=== PATIENT | male | born 1975 | race African-American/Black ===

== ENCOUNTER 2023-11-01 04:45 | Emergency (ER) | payer OTHER, SELFPAY ==
--- NOTE | ~2023-11-01 | US_ITS ---
US abdomen limited INDICATION: Pancreatitis. Gallbladder sludge. PROCEDURE: Realtime right upper abdominal ultrasound. COMPARISON: CT dated 11/01/2023 FINDINGS: Pancreas is not well visualized. Please refer to CT report. Liver echotexture is increased , consistent with fatty infiltration. There is normal directional flow in the portal vein. There is gallbladder sludge. No definitive stones. Common bile duct measures 4 mm. No sonographic M urphy's sign. IMPRESSION: 1: Gallbladder sludge. 2: Fatty infiltration of the liver. Reviewed, dictated and finalized at location A. RER GOLD LEAF
--- NOTE | ~2023-11-01 | CT_ITS ---
EXAMINATION: CT abdomen pelvis w con DATE: 11/01/2023 06:59 INDICATION: Generalized abdominal pain for 3 weeks. Pancreatitis. TECHNIQUE: Computed tomography (CT) of the abdomen and pelvis was performed with 100 cc Omnipaque 350 intravenous contrast. The dose-length product was 1728.57 mGy-cm. Automated exposure control and ite rative reconstruction technique were employed. COMPARISON: None. FINDINGS: There is patchy airspace consolidation in the lower lobes, consistent with pneumonia. Small left pleural effusion. There is no evidence for acute pancreatitis. There is a cystic mass centered in the left upper abdomen measuring up to 13.5 cm, suspicious for pancreatic pseudocyst. There is mas s effect on the adjacent stomach. Small pericardial effusion. The liver, spleen, adrenal glands and kidneys are unremarkable. Gallbladd er is present. Nonobstructive bowel pattern. No abnormal pelvic masses or fluid collections. Mild lum bar spondylosis. There is hyperdense material in the gallbladder which may represent sludge or stones . Consider correlation with ultrasound. IMPRESSION: 1. Acute pancreatitis with probable associated large pancreatic pseudocyst measuring up to 13.5 cm in the left upper abdomen. 2: Hyperdense material in the gallbladder lumen which may represent sludge or stones. Consider correl ation with ultrasound. Reviewed, dictated and finalized at location A. ERS COMPENSATION MANAGER IMPRESSION: 1. Acute pancreatitis with probable associated large pancreatic pseudocyst mick uring up to 13.5 cm in the left upper abdomen. 2: Hyperdense material in the gallbladder lumen which may represent sludge or s tones. Consider correlation with ultrasound.
[2023-11-01 04:45] VITALS: BP 167/108; PULSE 115; RESP 18; TEMP 36.6; O2SAT 95
--- NOTE | 2023-11-01 05:08 | ECG_ITS ---
Measurements Intervals [place] Rate: 104 P: 32 MI: 128 QRS: 44 QRSD: 105 T: 43 QT: 346 QTc: 456 Interpretive Statements SINUS TACHYCARDIA LEFT ATRIAL ENLARGEMENT [-0.15mV P WAVE IN V1/V2] BORDERLINE ECG NO PREVIOUS ECG AVAILABLE FOR COMPARISON Electronically Signed On 11-01-2023 18:23:52 SOCIAL WORK THERAPIST by Ramon Campbell M.D.
[2023-11-01] MEDS: SODIUM CHLORIDE 0.9% IV 2,000 ML 999 ML IV CONT (05:28)
[2023-11-01] MEDS: ONDANSETRON INJ 4 MG/2 ML VIAL IV PUSH (05:29)
[2023-11-01] MEDS: HYDROmorphone HCL INJ (*CRX) 1 MG/ML SYR 0.5 MG IV PUSH (05:30)
[2023-11-01 05:32] LABS: Glucose Point of Care 224 mg/dl (65-105)
[2023-11-01 05:35] VITALS: PULSE 108; RESP 22; O2SAT 92
[2023-11-01 05:37] LABS: Basophils Absolute Auto 0.1 K/mm3 (0.0-0.1); Basophils Percent Auto 0.9 % (0.2-1.2); Eosinophils Absolute Auto 0.2 K/mm3 (0-0.3); Eosinophils Percent Auto 1.6 % (0-4.4); Hematocrit 44.1 % (42.0-52.0); Hemoglobin 14.8 g/dL (14.0-18.0); Immature Granulocyte Absolute 0.71 K/mm3 (0.00-0.031); Immature Granulocyte Percent A 5.1 % (0-0.5); Lymphocytes Percent Auto 12.2 % (18.3-44.2); Mean Corpuscular HGB Conc 33.6 g/dl (32-36); Mean Corpuscular Hemoglobin 30.2 pg (26-34); Mean Platelet Volume 11.5 fl (7.4-10.4); Monocytes Absolute Auto 1.8 K/mm3 (0.1-0.6); Monocytes Percent Auto 13.2 % (2.6-8.5); Neutrophils Absolute Auto 9.3 K/mm3 (1.3-6.7); Nucleated Red Blood Cells Perc 0.1 % (0.0-0.2); Platelet Count Result 261 k/mm3 (150-375); Red Cell Distribution Width 14.6 % (11.5-14.5); White Blood Count 13.9 K/mm3 (4.5-10.0)
[2023-11-01 05:48] LABS: Lactic Acid Reflex 1.3 mmol/L (0.7-2.0)
[2023-11-01 05:57] LABS: Anisocytosis 1+ (NORMAL); Giant Platelets Present; Platelet Estimate Adequate (Adequate); Schistocytes None Seen (NORMAL)
[2023-11-01 06:14] LABS: Influenza A QL RT-PCR Negative (Negative); Influenza B QL RT-PCR Negative (Negative); RSV RNA, RT-PCR Negative (Negative); SARS-CoV-2 RNA PCR Positive (Negative)
[2023-11-01 06:40] LABS: Alanine Aminotransferase 97 U/L (6-50); Alkaline Phosphatase 102 U/L (38-126); Anion Gap 5 mmol/L (8-16); Aspartate Amino Transferase 74 U/L (17-59); Bilirubin,Total 1.2 mg/dL (0.2-1.3); Blood Urea Nitrogen 12 mg/dL (9-20); Calcium 8.5 mg/dL (8.4-10.2); Carbon Dioxide 27 mmol/L (22-30); Chloride 104 mmol/L (98-107); Estimated CRCL calculation 153 ml/min; Estimated Glomerular Filt Rate > 60; Glucose 211 mg/dL (65-110); Lipase 506 U/L (23-300); Potassium 3.6 mmol/L (3.4-5.0); Sodium 136 mmol/L (137-145)
--- NOTE | 2023-11-01 06:48 | ED.GENADULT ---
HPI - General Adult General Chief complaint: Abdominal Pain <Law Barrera MD - Last Filed: 11/01/23 06:53> Stated complaint: abd pain <Law Barrera MD - Last Filed: 11/01/23 06:53> Time Seen by Provider: 11/01/23 05:08 <Law Barrera MD - Last Filed: 11/01/23 06:53> History of Present Illness HPI narrative: This is a 48-year-old male presenting ED with chief complaint of abdominal pain. Patient's abdominal pain started approximately 3 weeks ago. Is an achy diffuse pain that is sometimes sharp. It is 10 out 10 intensity and constant. Feels like when he has had pancreatitis in the past. No exacerbating alleviating factors. No nausea vomiting diarrhea. Normal bowel movements. Patient was just discharged [facility] with diagnosis of pancreatitis and gallstones. patient cannot provide much information about the stay other than he was very unhappy with hospital. <Law Barrera MD - Last Filed: 11/01/23 06:53> Related Data Allergies/adverse reactions: Allergies Allergy/AdvReac Type Severity Reaction Status Date / Time shellfish derived Allergy Severe Anaphylactic Verified 09/29/17 14:20 Shock <Law Barrera MD - Last Filed: 11/01/23 06:53> [facility] Past Medical History Medical History: Medical History Diabetes Hypertension <Law Barrera MD - Last Filed: 11/01/23 06:53> Exam Narrative: APPEARANCE: No apparent distress. Head: atraumatic. EYES: EOMI, NOSE: Atraumatic NECK: Trachea midline RESPIRATORY: No increased rate of breathing CARDIOVASCULAR: RRR, ABDOMINAL: Obese, tender in the epigastric and right upper quadrant rebound MUSCULOSKELETAl: No obvious deformities NEURO: Alert. Moving 4/4 extremities SKIN:: Warm, dry. Normal color PSYCHIATRIC: Normal affect <Law Barrera MD - Last Filed: 11/01/23 06:53> Course Course Emergency Course: Patient felt improved with treatment and patient will have close follow-up with his physicians. <Panchito Sheikh MD - Last Filed: 11/01/23 14:42> Reevaluation(s) Reevaluation #1: At time of sign-out CT was pending. CT did show evidence of pancreatitis and some gallbladder sludge, ultrasound was recommended. Ultrasound did show gallbladder sludge with no evidence of acute cholecystitis. Patient did feel improved with treatment. Patient was updated on results of his imaging and was encouraged close follow-up with surgery and with GI. All questions concerns were addressed patient was comfortable with plan for discharge and close follow-up. <Panchito Sheikh MD - Last Filed: 11/01/23 14:42> Vital Signs Vital signs: Vital Signs Temperature 97.9 F 11/01/23 04:45 Pulse Rate 115 H 11/01/23 04:45 Respiratory Rate 18 11/01/23 04:45 Blood Pressure 167/108 H 11/01/23 04:45 Pulse Oximetry 95 11/01/23 04:45 Oxygen Delivery Room Air 11/01/23 04:45 Temperature 97.9 F 11/01/23 04:45 Pulse Rate 122 H 11/01/23 09:02 Respiratory Rate 16 11/01/23 08:32 Blood Pressure 144/97 H 11/01/23 09:02 Pulse Oximetry 90 11/01/23 08:32 Oxygen Delivery Room Air 11/01/23 04:45 <Law Barrera MD - Last Filed: 11/01/23 06:53> Vital Signs Temperature 97.9 F 11/01/23 04:45 Pulse Rate 115 H 11/01/23 04:45 Respiratory Rate 18 11/01/23 04:45 Blood Pressure 167/108 H 11/01/23 04:45 Pulse Oximetry 95 11/01/23 04:45 Oxygen Delivery Room Air 11/01/23 04:45 Temperature 97.9 F 11/01/23 04:45 Pulse Rate 122 H 11/01/23 09:02 Respiratory Rate 16 11/01/23 08:32 Blood Pressure 144/97 H 11/01/23 09:02 Pulse Oximetry 90 11/01/23 08:32 Oxygen Delivery Room Air 11/01/23 04:45 <Panchito Sheikh MD - Last Filed: 11/01/23 14:42> Medical Decision Making MDM Narrative Medical decision making narrative: -Course: 48-year-old male who was recently discharged from [facility]
[2023-11-01 07:10] VITALS: BP 156/104; PULSE 102; RESP 23; O2SAT 96
[2023-11-01] MEDS: SODIUM CHLORIDE 0.9% IV 1,000 ML 999 ML IV CONT (08:15)
[2023-11-01 08:32] VITALS: BP 149/91; PULSE 102; RESP 16; O2SAT 90
[2023-11-01 09:02] VITALS: BP 144/97; PULSE 122
== END 2023-11-01 10:06 | disposition home or self-care (01) ==
PROVIDERS: Emergency Provider Emergency Medicine; PCP Internal Medicine
DX: K85.90 Acute pancreatitis without necrosis or infection, unspecified (principal); U07.1 COVID-19; E11.9 Type 2 diabetes mellitus without complications; I10 Essential (primary) hypertension; K76.0 Fatty (change of) liver, not elsewhere classified; R93.2 Abnormal findings on diagnostic imaging of liver and biliary tract
CPT/HCPCS: 36415; 74177; 76705; 80053; 82948; 83605; 83690; 85025; 87637; 93005; 96361; 96374; 96375; 99284; J1170; J2405; J7030; Q9967

== ENCOUNTER 2023-11-05 07:45 | Inpatient (IN) | payer OTHER, SELFPAY ==
[2023-11-05] VITALS (19 sets, daily range): BP systolic 146–185; BP diastolic 89–117; PULSE 91–124; RESP 16–22; TEMP 36.1–37; O2SAT 95–99; BMI 39.3
--- NOTE | ~2023-11-05 | MR_ITS ---
EXAMINATION: MR MRCP wo/w con/w 3D wo ind DATE: 11/06/2023 12:37 INDICATION: Recurrent pancreatitis. Abnormal liver function tests. TECHNIQUE: Magnetic resonance imaging (MRI) of the abdomen was performed without and with 20 mL Multi Angus intravenous contrast. Sequences included coronal T2-weighted FS FSE, coronal T2-weighted FSE, a xial T1-weighted LAVA, coronal FS FIESTA, axial dual-echo T1-weighted SPGR, coronal lava-FLEX, sagitt al T2-weighted FSE, axial T2-weighted FSE, and axial DWI. Thick-slab T2-weighted FSE images were obta ined for magnetic resonance cholangiopancreatography (MRCP). Maximum intensity projection 3-D reconst ructions of the volumetric data were created by the technologist. Postcontrast sequences included cor onal LAVA-flex and time course of axial T1-weighted LAVA. COMPARISON: CT abdomen and pelvis 11/05/2023 FINDINGS: ABDOMEN MRI: There are small pleural effusions, left worse than right. The liver is normal. There are gallstones in the gallbladder, which is normal in size. The pancreas demonstrates areas of nonenhanc ement. There is fat stranding around the pancreas. There are fluid collections involving the pancreas and peripancreatic region with the largest measuring 12.7 x 9.8 x 7.7 cm. The adrenal glands are nor mal. There are cysts in the kidneys measuring up to 9 mm on the left. There are no dilated loops of b owel. There are no pathologically enlarged lymph nodes. There is trace ascites. ABDOMEN MRCP: The common duct is normal and measures 3 mm . No choledocholithiasis. IMPRESSION: 1. Acute necrotizing pancreatitis with acute peripancreatic collections. 2. Cholelithiasis. 3. Normal common duct. No choledocholithiasis. 4. Small pleural effusions. Reviewed, dictated and finalized at location A. PLUG PACKER
--- NOTE | ~2023-11-05 | XR_ITS ---
EXAMINATION: XR chest 2V DATE: 11/05/2023 13:51 INDICATION: Pneumonia. TECHNIQUE: Frontal and lateral views of the chest were obtained. COMPARISON: CT abdomen and pelvis 11/05/2023 FINDINGS: There are airspace opacities in the lower lung zones. No pleural effusion or pneumothorax. The heart size is normal. IMPRESSION: 1. Airspace opacities in the lower lung zones, likely atelectasis. Reviewed, dictated and finalized at location A. CHUTE TAPER
--- NOTE | ~2023-11-05 | CT_ITS ---
EXAMINATION: CT abdomen pelvis w con DATE: 11/05/2023 09:11 INDICATION: Epigastric abdominal pain TECHNIQUE: Computed tomography (CT) of the abdomen and pelvis was performed with 100 mL Omnipaque-350 intravenous contrast. Automated exposure control and iterative reconstruction technique were employe d. The dose-length product was 1721.44 mGy-cm. COMPARISON: 11/01/2023 FINDINGS: Small left pleural effusion. Volume loss with bandlike discoid atelectasis in the bilateral lower lob es. Additional linear discoid atelectasis in the right middle lobe and lingula. Heart size is normal. Small pericardial effusion. Gradient of high attenuation gallbladder sludge in the dependent aspect of the otherwise normal-appearing gallbladder. Liver, spleen, bilateral adrenal glands and kidneys ar e normal. Again seen is prominent peripancreatic stranding and fluid centered about the body and tail of the pancreas consistent with acute pancreatitis. No significant interval change in a 12.7 x 9.1 x 8.0 cm loculated peripancreatic collection situated cephalad to the tail of the pancreas which exert s mass effect upon the body of the stomach. Also without significant change is a less organized-appea ring incompletely loculated peripancreatic fluid collection tracking inferiorly from the tail of the pancreas. This measures approximately 7.4 x 4.7 x 2.7 cm. Bowels including the appendix are normal. B ladder is normal. No free intraperineal gas. There is mild likely reactive peripancreatic, periportal and upper abdominal aorta caval lymphadenopathy. Mild thoracolumbar spondylosis. IMPRESSION: 1. No significant interval change in prominent peripancreatic inflammatory stranding with a couple fl uid collections, the larger measuring 4.7 similar appears loculated consistent with a pancreatic pseu docyst and the second less organized-appearing collection more suggestive of acute peripancreatic col lection. 2. Small left pleural effusion with prominent discoid atelectasis in the bilateral lower lungs. Reviewed, dictated and finalized at location L. ASSEMBLER FOR PULLER OVER IMPRESSION: 1. No significant interval change in prominent peripancreatic inflammatory stra nding with a couple fluid collections, the larger measuring 4.7 similar appears loculated consistent with a pancreatic pseudocyst and the second less organize d-appearing collection more suggestive of acute peripancreatic collection. 2. Small left pleural effusion with prominent discoid atelectasis in the bilate ral lower lungs.
[2023-11-05] MEDS: SODIUM CHLORIDE 0.9% IV 2,000 ML 999 ML IV CONT (08:22)
[2023-11-05] MEDS: ONDANSETRON INJ 4 MG/2 ML VIAL IV PUSH (08:22)
[2023-11-05] MEDS: MORPHINE SULFATE (*CRX) 4 MG/ML INJ IV PUSH ×2 (08:22→23:20)
[2023-11-05 08:32] LABS: Basophils Absolute Auto 0.1 K/mm3 (0.0-0.1); Basophils Percent Auto 0.5 % (0.2-1.2); Eosinophils Absolute Auto 0.3 K/mm3 (0-0.3); Eosinophils Percent Auto 1.8 % (0-4.4); Hematocrit 45.4 % (42.0-52.0); Immature Granulocyte Absolute 0.26 K/mm3 (0.00-0.031); Immature Granulocyte Percent A 1.5 % (0-0.5); Lymphocytes Absolute Auto 1.46 K/mm3 (0.9-3.2); Lymphocytes Percent Auto 8.4 % (18.3-44.2); Mean Corpuscular Hemoglobin 29.9 pg (26-34); Mean Corpuscular Volume 90.4 fl (80-100); Mean Platelet Volume 11.4 fl (7.4-10.4); Monocytes Absolute Auto 1.5 K/mm3 (0.1-0.6); Monocytes Percent Auto 8.5 % (2.6-8.5); Neutrophils Absolute Auto 13.8 K/mm3 (1.3-6.7); Neutrophils Percent Auto 79.3 % (45.5-73.1); Platelet Count Result 350 k/mm3 (150-375); Red Blood Count 5.02 M/mm3 (4.6-6.20); Red Cell Distribution Width 14.5 % (11.5-14.5); White Blood Count 17.4 K/mm3 (4.5-10.0)
[2023-11-05 08:40] LABS: Lactic Acid Reflex 1.2 mmol/L (0.7-2.0)
[2023-11-05 08:43] LABS: Alanine Aminotransferase 160 U/L (6-50); Albumin Level 3.8 g/dL (3.5-5.1); Alkaline Phosphatase 150 U/L (38-126); Anion Gap 6 mmol/L (8-16); Aspartate Amino Transferase 103 U/L (17-59); Bilirubin,Total 1.2 mg/dL (0.2-1.3); Blood Urea Nitrogen 13 mg/dL (9-20); Calcium 9.5 mg/dL (8.4-10.2); Carbon Dioxide 29 mmol/L (22-30); Chloride 100 mmol/L (98-107); Estimated CRCL calculation 134 ml/min; Estimated Glomerular Filt Rate > 60; Glucose 262 mg/dL (65-110); Lipase 1342 U/L (23-300); Potassium 4.2 mmol/L (3.4-5.0); Sodium 135 mmol/L (137-145)
[2023-11-05 10:08] LABS: Appearance Urine Clear (Clear); Bacteria Urine None Seen /hpf; Bilirubin Urine Negative (Negative); Blood Urine Negative (Negative); Color Urine Yellow (Yellow); Glucose Urine UA Trace mg/dL (Negative); Ketones Urine Trace mg/dL (Negative); Leukocyte Esterase Ur Negative LEU/UL (Negative); Nitrate Urine Negative (Negative); Protein Urine Trace mg/dL (Negative); RBC Urine 0-2 /hpf (0-2); Squamous Epithelial Cell Urine None seen /hpf (Few); Urobilinogen Urine 0.2 mg/dL (<2.0); WBC Urine 0-5 /hpf; pH Urine 5.5 (5.0-9.0)
--- NOTE | 2023-11-05 10:08 | ED.ABDPAIN ---
HPI - Abdominal Pain General Chief Complaint: Abdominal Pain Stated Complaint: ABD PAIN HX PANCREATITIS Time Seen by Provider: 11/05/23 07:59 History of Present Illness HPI narrative: This is a 48-year-old male, with history of pancreatitis, who presents to the emergency department complaining severe epigastric abdominal pain. Patient states his pain is sharp, rated 8 to 9/10 associated with nausea and nonbloody vomiting without radiation, fevers or chills. The patient states he was seen in this ED approximately 5 days ago with similar symptoms. He was given pain and nausea medications which have not helped. He has no other complaints at this time. Related Data Home Medications Medication Instructions Recorded Confirmed atorvastatin 10 mg tablet 10 mg PO DAILY 11/05/23 11/05/23 cyanocobalamin (vitamin B-12) 1,000 mcg subcut WEEKLY 11/05/23 11/05/23 1,000 mcg/mL injection solution glyburide 2.5 mg tablet 2.5 mg PO DAILY 11/05/23 11/05/23 insulin glargine 100 unit/mL (3 18 unit subcut HS 11/05/23 11/05/23 mL) subcutaneous pen (Lantus Solostar U-100 Insulin) lisinopril 20 mg tablet 20 mg PO DAILY 11/05/23 11/05/23 pantoprazole 40 mg tablet,delayed 40 mg PO DAILY 11/05/23 11/05/23 release sitagliptin phosphate 100 mg 100 mg PO DAILY 11/05/23 11/05/23 tablet (Januvia) Allergies Allergy/AdvReac Type Severity Reaction Status Date / Time shellfish derived Allergy Severe Anaphylactic Verified 11/05/23 12:58 Shock Review of Systems Review of Systems: CONSTITUTIONAL: Denies fever, chills, or sweats. CARDIOVASCULAR: Denies chest pain, palpitations, or edema. RESPIRATORY: Denies cough or dyspnea. GASTROINTESTINAL: Epigastric abdominal pain, nausea and nonbloody vomiting denies diarrhea. GENITOURINARY: Denies dysuria or hematuria. SKIN: Denies rash or itching. MUSCULOSKELETAL: Denies back pain, joint pain, or myalgia. NEUROLOGIC: Denies headache, numbness, dizziness, or weakness. PSYCHIATRIC: Denies anxiety or depression. [facility] Past Medical History Medical History Diabetes Elevated liver enzymes Gallbladder sludge HLD (hyperlipidemia) Hypertension Pancreatic pseudocyst Pancreatitis Surgical History Surgical History History of knee surgery L ACL and Meniscus Repair Social History Social History Smoking packs per day: 0.5 Smoking cigarettes per day: 10.0 Years smoked: 28 Smoking pack-years: 14.00 Smoking status: Current every day smoker Alcohol intake: current Drinks per week: 1 Substance use: never Do You Feel Safe in your Home?: Yes Lack of Transportation: No Lack of Food: Never True Current Housing: I Have Housing Concerned About Future Housing: No Difficulty Paying Gas/Electric Bills: No Difficulty Paying for Meds: No Currently Unemployed: YES Education: Associate Degree Difficulty w/ Childcare or Family Care: No Spiritual care concerns: No Exam Narrative: GENERAL: Well-developed, well-nourished, appears uncomfortable HEAD: Normocephalic, atraumatic. EYES: PERRLA and EOMI. CHEST: Clear to auscultation. No respiratory distress. No wheezes rales or rhonchi HEART: Regular rate and rhythm. No murmur heard. Normal peripheral pulses. ABDOMEN: Soft, epigastric tenderness to palpation, without rebound or guarding, nondistended, normal active bowel sounds. EXTREMITIES: Normal range of motion. No edema. SKIN: Warm, dry, no rash. NEURO: Alert and oriented x3. No focal deficit. Moving all 4 limbs spontaneously PSYCH: Normal mood and affect. Course Course Emergency Course: 10:28 - White blood cell count 17.4. CBC otherwise unremarkable. Chemistries demonstrate mild AST/ALT elevation of 103/160 respectively. Lipase elevated to 1342, increased from 506 (4 days ago). UA not concerning
[2023-11-05 10:15] LABS: Specific Grav Ur 1.054 (1.001-1.035)
[2023-11-05 10:16] LABS: Add Urine Microscopic? YES
--- NOTE | 2023-11-05 12:43 | ADMGEN ---
This patient, Reji Mohr, was admitted to [facility] Room 302-01. Patient/family oriented to hospital policies and general routines including ID bracelet, bed and alarms, visiting hours, pain management, procedures, bathroom and other care routines, personal items, smoking policy, room service/diet, and visiting hours. Information on how to activate the Rapid Response Team has been discussed. Patient/Family are encouraged to report perceived risks to care and to ask questions if they do not understand what they are told or what they should do.
--- NOTE | 2023-11-05 13:01 | PM.IMHP ---
H&P: HPI History of Present Illness Date/Time: 11/05/23 13:01 Chief Complaint: Abdominal Pain Narrative: 48 y/o M presents here with recurrent/ongoing abdominal pain with PMH of DM, HLD, and HTN. Patient presented here from home for evaluation of upper abdominal pain with N/V/D. Describes the pain as achy, diffuse, intermittently sharp and with intermittent radiation into his lower back. Aggravating factors - none. Alleviating factors - none. Did not take any OTC medications for symptoms. LBM today, . Patient described it as thick and green . Patient was recently seen here on 11/01/23 for similar complaints and reported symptoms were similar to his previous pancreatitis episode(s). Patient was again diagnosed with acute pancreatitis and additionally tested positive for COVID. Patient denied any preceding cold symptoms, cough, fever, or SOB. Patient was seen prior to seeking care here on 11/01 at [facility] on 10/24 and was diagnosed with pancreatitis, pneumonia, and gallstones. Prescribed amoxicillin - 5 day course, completed. Patient has hx of pancreatitis, last flare was in 2022. Pancreatitis was attributed to ETOH, patient denies alcohol use. Patient reports alcohol use once per month, was previously drinking twice per month. Patient typically seeks care at [facility] but did not have a good experience the last time he was evaluated there - reports a med error. PCP Zee Stokes MD. Initial VS at presentation: 97.7F, HR 124, RR 20, 159/103, and 98% on RA. ED workup showed leukocytosis with WBC of 17.4, no anemia, glucose 262, LFTs moderately elevated, alk-phos 150, lipase 1342, and UA I would not suggestive of UTI. CT of the abd/pelvis showed no significant interval change in prominent peripancreatic inflammatory stranding with a couple fluid collections when compared to CT on 11/01. Review of Systems Review of Systems: All systems reviewed & are unremarkable except as noted in HPI and below PMFSH Past Medical History Medical History (Updated 11/05/23 @ 15:27 by Jes Clinton APRN) Diabetes HLD (hyperlipidemia) Hypertension Pancreatitis Surgical History Surgical History (Updated 11/05/23 @ 15:17 by Jes Clinton APRN) History of knee surgery L ACL and Meniscus Repair Social History Social History Smoking packs per day: 0.5 Smoking cigarettes per day: 10.0 Years smoked: 28 Smoking pack-years: 14.00 Smoking status: Current every day smoker Alcohol intake: current Drinks per week: 1 Substance use: never Do You Feel Safe in your Home?: Yes Lack of Transportation: No Lack of Food: Never True Current Housing: I Have Housing Concerned About Future Housing: No Difficulty Paying Gas/Electric Bills: No Difficulty Paying for Meds: No Currently Unemployed: YES Education: Associate Degree Difficulty w/ Childcare or Family Care: No Spiritual care concerns: No Meds Home Medications and Allergies Home Medications Medication Instructions Recorded Confirmed Type atorvastatin 10 mg tablet 10 mg PO DAILY 11/05/23 11/05/23 History cyanocobalamin (vitamin B-12) 1,000 mcg subcut WEEKLY 11/05/23 11/05/23 History 1,000 mcg/mL injection solution glyburide 2.5 mg tablet 2.5 mg PO DAILY 11/05/23 11/05/23 History insulin glargine 100 unit/mL (3 18 unit subcut HS 11/05/23 11/05/23 History mL) subcutaneous pen (Lantus Solostar U-100 Insulin) lisinopril 20 mg tablet 20 mg PO DAILY 11/05/23 11/05/23 History pantoprazole 40 mg tablet,delayed 40 mg PO DAILY 11/05/23 11/05/23 History release sitagliptin phosphate 100 mg 100 mg PO DAILY 11/05/23 11/05/23 History tablet (Januvia) Allergies Allergy/AdvReac Type Severity Reaction Status Date / Time shellfish derived Allergy Severe Anaphylactic Verified 11/05/23 12:58 Shock Vital Signs Vital Signs - 24 hr 11/05/23 07:49 11/05/23 07:51 11/05/23 07:52 Temperatu
--- NOTE | 2023-11-05 16:51 | WPDGICN ---
Assessment and Plan Assessment and plan (1) Pancreatitis: Qualifiers: Chronicity: acute Pancreatitis type: unspecified pancreatitis type Acute pancreatitis complication: unspecified Qualified Code(s): K85.90 - Acute pancreatitis without necrosis or infection, unspecified Code(s): K85.90 - Acute pancreatitis without necrosis or infection, unspecified Status: Acute Assessment and Plan: ongoing for several days repeat CT scan shows again large pseudocyst 12x9 cm- recommend transfer to tertiary hospital, I think he will benefit from endoscopic ultrasound evaluation of large cyst with possible transmural guided drainage npo for now, pain control (2) Pancreatic pseudocyst: Code(s): K86.3 - Pseudocyst of pancreas Status: Acute Assessment and Plan: will need tertiary evaluation (3) Elevated liver enzymes: Code(s): R74.8 - Abnormal levels of other serum enzymes Status: Acute Assessment and Plan: from pancreatitis monitor (4) Gallbladder sludge: Code(s): K82.8 - Other specified diseases of gallbladder Status: Acute Assessment and Plan: probably later on will benefit also from cholecystectomy (5) COVID: Code(s): U07.1 - COVID-19 Status: Acute Assessment and Plan: no respiratory issues on isolation (6) Diabetes: Qualifiers: Diabetes mellitus type: type 2 Diabetes mellitus terminal superintendent insulin use: without terminal superintendent use Diabetes mellitus complication status: without complication Qualified Code(s): E11.9 - Type 2 diabetes mellitus without complications Code(s): E11.9 - Type 2 diabetes mellitus without complications Status: Acute GI Consult Note Consult date/time: 11/05/23 16:51 Reason for consult: pancreatitis with large pseudocyst, abdominal pain HPI: Reji Mohr is a 48 year old male here with worsening upper abdominal pain with N/V that has been going on for 2 weeks, pain described as achy, diffuse sharp discomfort with to his lower back. Patient came to ER on 11/01/23 for similar complaints and sent home, CT scan showed Acute pancreatitis with probable associated large pancreatic pseudocyst measuring up to 13.5 cm in the left upper abdomen. He also was tested positive for COVID but denies much of respiratory problem. He has hx of pancreatitis last year at [facility], he only drinks socially and denies heavy drinking. ED workup showed leukocytosis with WBC of 17.4, no anemia, glucose 262, transaminases 100-160, alk-phos 150, lipase 1342. Repeat CT scan similar findings (ultrasound GB sludge and normal cbd size)? ? Review of Systems Constitutional: Constitutional: Denies chills Eyes: Eyes: Denies blurry vision ENT: Reports Normal hearing present Cardiovascular: Cardiovascular: Denies chest pain Respiratory: Respiratory: Denies cough Gastrointestinal: Gastrointestinal: Reports abdominal pain, Reports nausea and Reports vomiting Genitourinary: Genitourinary: Denies urinary frequency Musculoskeletal: Musculoskeletal: Denies neck pain Integumentary/Breasts: Skin/Breast: Denies rash Neurologic: Denies Abnormal speech present Psychiatric: Psychiatric: Denies behavioral changes [facility] Past Medical History Medical History (Updated 11/05/23 @ 16:57 by Marck Shelton MD) Diabetes Elevated liver enzymes Gallbladder sludge HLD (hyperlipidemia) Hypertension Pancreatic pseudocyst Pancreatitis Surgical History Surgical History (Updated 11/05/23 @ 15:17 by Jes Clinton APRN) History of knee surgery L ACL and Meniscus Repair Social History Social History Smoking packs per day: 0.5 Smoking cigarettes per day: 10.0 Years smoked: 28 Smoking pack-years: 14.00 Smoking status: Current every day smoker Alcohol intake: current Drinks per week: 1 Substance use: never Do You Feel Safe in your Ho
[2023-11-05] MEDS: HYDROcodone/acetaminophen (*CRX) 5-325 MG TABLET 1 TAB PO (17:22)
[2023-11-05 18:05] LABS: Ethanol < 10 mg/dL (<10)
[2023-11-05] MEDS: LACTATED RINGERS 1,000 ML 125 ML IV CONT (18:50)
[2023-11-05 20:36] LABS: Glucose Point of Care 249 mg/dl (65-105)
[2023-11-05] MEDS: INSULIN GLARGINE (*BKC) 100 UNITS/ML 21 UNITS SUB-Q (20:46)
[2023-11-05] MEDS: HEPARIN SODIUM 5,000 UNITS/ML VIAL 5000 UNITS SUB-Q (20:46)
[2023-11-05] MEDS: INSULIN ASPART (*BKC) 100 UNITS/ML SUB-Q (20:46)
[2023-11-06 05:15] VITALS: BP 128/93; PULSE 110; RESP 18; TEMP 36.2; O2SAT 94
[2023-11-06] MEDS: HYDROcodone/acetaminophen (*CRX) 5-325 MG TABLET 1 TAB PO (05:18)
[2023-11-06] MEDS: LACTATED RINGERS 1,000 ML 125 ML IV CONT (05:21)
[2023-11-06 05:50] LABS: Hematocrit 43.3 % (42.0-52.0); Hemoglobin 14.2 g/dL (14.0-18.0); Mean Corpuscular HGB Conc 32.8 g/dl (32-36); Mean Corpuscular Volume 91.4 fl (80-100); Mean Platelet Volume 11.8 fl (7.4-10.4); Platelet Count Result 365 k/mm3 (150-375); Red Blood Count 4.74 M/mm3 (4.6-6.20); Red Cell Distribution Width 14.3 % (11.5-14.5); White Blood Count 12.4 K/mm3 (4.5-10.0)
[2023-11-06 06:03] LABS: Alanine Aminotransferase 142 U/L (6-50); Albumin Level 3.5 g/dL (3.5-5.1); Alkaline Phosphatase 133 U/L (38-126); Anion Gap 5 mmol/L (8-16); Aspartate Amino Transferase 89 U/L (17-59); Blood Urea Nitrogen 9 mg/dL (9-20); Calcium 9.4 mg/dL (8.4-10.2); Carbon Dioxide 28 mmol/L (22-30); Chloride 102 mmol/L (98-107); Estimated CRCL calculation 149 ml/min; Estimated Glomerular Filt Rate > 60; Glucose 211 mg/dL (65-110); Lipase 1230 U/L (23-300); Potassium 4.1 mmol/L (3.4-5.0); Sodium 135 mmol/L (137-145)
[2023-11-06 06:08] LABS: Hemoglobin A1C 6.9 % (<5.7)
[2023-11-06 07:56] LABS: Glucose Point of Care 190 mg/dl (65-105)
[2023-11-06 09:31] VITALS: BP 138/85; PULSE 88; RESP 16; O2SAT 98
[2023-11-06] MEDS: glyBURIDE 2.5 MG TABLET PO (09:32)
[2023-11-06] MEDS: ATORVASTATIN 10 MG TABLET PO (09:32)
[2023-11-06] MEDS: PANTOPRAZOLE 40 MG TABLET PO (09:32)
[2023-11-06] MEDS: lisinopriL 20 MG TABLET PO (09:32)
[2023-11-06] MEDS: HEPARIN SODIUM 5,000 UNITS/ML VIAL 5000 UNITS SUB-Q (09:33)
[2023-11-06 10:20] VITALS: BMI 39.3
--- NOTE | 2023-11-06 11:12 | PM.IMPN ---
Subjective Date/time seen: 11/06/23 11:12 Objective Data Vital Signs Vital Signs: Vital Signs - 24 hr 11/05/23 11:30 11/05/23 14:00 11/05/23 20:10 Temperature 37.0 C 37.0 C 36.1 C L Pulse Rate 101 H 101 H 98 Respiratory Rate 18 18 18 Blood Pressure 152/100 H 152/100 H 159/98 H Pulse Oximetry 98 98 98 Oxygen Delivery 11/05/23 20:00 11/06/23 05:15 11/06/23 09:31 Temperature 36.2 C L Pulse Rate 110 H 88 Respiratory Rate 18 16 Blood Pressure 128/93 H 138/85 Pulse Oximetry 98 94 98 Oxygen Delivery Room Air Intake/Output Intake/Output: Intake & Output 11/03/23 11/04/23 11/05/23 11/06/23 23:59 23:59 23:59 23:59 Intake Total 318 1450 Balance 318 1450 Meds/Results Medications: Active Medications Generic Name Dose Route Start Last Admin Trade Name Freq PRN Reason Stop Dose Admin Acetaminophen 500 mg 11/05/23 13:18 Acetaminophen 500 Mg Tablet PO Q4H PRN Mild Pain (1-3) or Fever Hydrocodone Bitart/Acetaminophen 1 tab 11/05/23 13:18 11/06/23 05:18 Hydrocodone/Acetaminophen (*Crx) 5-325 Mg Tablet PO 1 tab Q4H PRN Administration Pain Rated 4-6 Atorvastatin Calcium 10 mg 11/06/23 09:00 11/06/23 09:32 Atorvastatin 10 Mg Tablet PO 10 mg DAILY [facility] Administration Benzocaine 1 lozenge 11/05/23 13:21 Benzocaine/Menthol (*Bkc) 18 Ea Lozenge PO PRN PRN Sore Throat Benzonatate 100 mg 11/05/23 13:21 Benzonatate 100 Mg Capsule PO TID PRN Cough Cyanocobalamin 1,000 mcg 11/06/23 09:00 Cyanocobalamin Inj 1,000 Mcg/Ml Vial SUB-Q WEEKLY CECE Dextrose 12.5 gm 11/05/23 10:31 Dextrose 50% 25 Gm/50 Ml Syringe IV PUSH PRN PRN Hypoglycemia Protocol Glucagon 1 mg 11/05/23 10:31 Glucagon For Inj 1 Mg Vial IM PRN PRN Hypoglycemia Protocol Glucose 15 gm 11/05/23 10:31 Glucose Oral Gel 15 Gm Of Glucse In 37.5 Gm Tube PO PRN PRN Hypoglycemia Protocol Glyburide 2.5 mg 11/06/23 09:00 11/06/23 09:32 Glyburide 2.5 Mg Tablet PO 2.5 mg DAILY [facility] Administration Heparin Sodium (Porcine) 5,000 units 11/05/23 21:00 11/06/23 09:33 Heparin Sodium 5,000 Units/Ml Vial SUB-Q 5,000 units Q12HR [facility] Administration Lactated Ringer's 1,000 mls @ 125 mls/hr 11/05/23 10:30 11/06/23 05:21 Lr - Lactated Ringers Iv IV CONT 125 mls/hr .Q8H CECE Administration Dextrose 1,000 mls @ 100 mls/hr 11/05/23 10:31 Dextrose 5% 1,000 Ml IVPB PRN PRN Hypoglycemia Protocol Insulin Aspart 2 - 5 units 11/05/23 17:00 11/06/23 09:15 Insulin Aspart (*Bkc) 100 Units/Ml SUB-Q Not Given TID[facility] Protocol Insulin Aspart 1 - 2 units 11/05/23 21:00 11/05/23 20:46 Insulin Aspart (*Bkc) 100 Units/Ml SUB-Q 1 units HS [facility] Administration Protocol Insulin Glargine 21 units 11/05/23 21:00 11/05/23 20:46 Insulin Glargine (*Bkc) 100 Units/Ml 0.15 units/kg (21 units) 21 units SUB-Q Administration [facility] Insulin Glargine 18 units 11/05/23 21:00 Insulin Glargine (*Bkc) 100 Units/Ml SUB-Q [facility] Lisinopril 20 mg 11/06/23 09:00 11/06/23 09:32 Lisinopril 20 Mg Tablet PO 20 mg DAILY [facility] Administration Morphine Sulfate 4 mg 11/05/23 10:28 11/05/23 23:20 Morphine Sulfate (*Crx) 4 Mg/Ml Inj IV PUSH 4 mg Q2H PRN Administration Pain Rated 7-10 Ondansetron HCl 4 mg 11/05/23 13:18 Ondansetron Inj 4 Mg/2 Ml Vial IV PUSH Q6H PRN Nausea And Vomiting Pantoprazole Sodium 40 mg 11/06/23 09:00 11/06/23 09:32 Pantoprazole 40 Mg Tablet PO 40 mg DAILY [facility] Administration Radiology Results: ITS Impressions Abdomen/Pelvis CT 11/05/23 09:12 IMPRESSION: 1. No significant interval change in prominent peripancreatic inflammatory stranding with a couple fluid collections, the larger measuring 4.7 similar appears loculated consistent with a pancreatic pseudocyst and the se
[2023-11-06] MEDS: ONDANSETRON INJ 4 MG/2 ML VIAL IV PUSH (11:29)
[2023-11-06] MEDS: MORPHINE SULFATE (*CRX) 4 MG/ML INJ IV PUSH ×2 (11:29→14:03)
[2023-11-06 11:40] LABS: Glucose Point of Care 223 mg/dl (65-105)
--- NOTE | 2023-11-06 11:56 | WPDGIPROGNO ---
Progress Note: A&P Assessment and Plan (1) Acute pancreatitis: Qualifiers: Acute pancreatitis complication: unspecified Pancreatitis type: other Qualified Code(s): K85.80 - Other acute pancreatitis without necrosis or infection Code(s): K85.90 - Acute pancreatitis without necrosis or infection, unspecified Status: Acute Assessment and Plan: complicated with large size pseudocyst, symptomatic for almost 3 weeks pain control and liquid diet consider transfer to tertiary hospital for evaluation of pseudocyst and EUS with possible transmural guided drainage, I do not know if he would be able to successfully go home to have that taken care as outpatient (2) Pancreatic pseudocyst: Code(s): K86.3 - Pseudocyst of pancreas Status: Acute (3) Elevated liver enzymes: Code(s): R74.8 - Abnormal levels of other serum enzymes Status: Acute Assessment and Plan: trend lft (4) Abdominal pain, acute, epigastric: Code(s): R10.13 - Epigastric pain Status: Acute (5) Gallbladder sludge: Code(s): K82.8 - Other specified diseases of gallbladder Status: Acute Assessment and Plan: will benefit also of cholecystectomy after resolution of pancreatitis (6) Nausea and vomiting: Qualifiers: Vomiting type: unspecified Qualified Code(s): R11.2 - Nausea with vomiting, unspecified Code(s): R11.2 - Nausea with vomiting, unspecified Status: Acute Subjective Date/time seen: 11/06/23 11:56 Interval history: tolerating CL diet but still some nausea and abdominal pain, slightly better than yesterday Review of Systems Review of Systems: All systems reviewed & are unremarkable except as noted in HPI and below Exam Const: General: no acute distress Other: some discomfort because abdominal pain obese HENMT: Face/Nose/Sinus: Normal nares present Eyes: General: appearance normal, both eyes and all related structures Neck: Neck: supple Resp: Auscultation: clear to auscultation bilaterally Cardio: Rate: regular rate Rhythm: regular rhythm GI: GI Palp: Yes Soft to palpation and Yes Tenderness to palpation present (GI) (ttp in upper abdomen, no rebound) Skin: General skin exam: normal color Neuro: Speech: normal speech Motor exam (neuro): 5/5 motor strength present throughout Extrem: General: normal to inspection Psych: Mental Status: mental status grossly normal Objective Data Vital Signs Vital Signs: Vital Signs - 24 hr 11/05/23 14:00 11/05/23 20:10 11/05/23 20:00 Temperature 98.6 F 97 F L Pulse Rate 101 H 98 Respiratory Rate 18 18 Blood Pressure 152/100 H 159/98 H Pulse Oximetry 98 98 98 Oxygen Delivery Room Air 11/06/23 05:15 11/06/23 09:31 11/06/23 09:30 Temperature 97.2 F L Pulse Rate 110 H 88 Respiratory Rate 18 16 Blood Pressure 128/93 H 138/85 Pulse Oximetry 94 98 Oxygen Delivery Room Air Intake/Output Intake/Output: Intake & Output 11/03/23 11/04/23 11/05/23 11/06/23 23:59 23:59 23:59 23:59 Intake Total 318 1450 Balance 318 1450 Meds/Results Medications: Active Medications Generic Name Dose Route Start Last Admin Trade Name Freq PRN Reason Stop Dose Admin Acetaminophen 500 mg 11/05/23 13:18 Acetaminophen 500 Mg Tablet PO Q4H PRN Mild Pain (1-3) or Fever Hydrocodone Bitart/Acetaminophen 1 tab 11/05/23 13:18 11/06/23 05:18 Hydrocodone/Acetaminophen (*Crx) 5-325 Mg Tablet PO 1 tab Q4H PRN Administration Pain Rated 4-6 Atorvastatin Calcium 10 mg 11/06/23 09:00 11/06/23 09:32 Atorvastatin 10 Mg Tablet PO 10 mg DAILY CECE Administration Benzocaine 1 lozenge 11/05/23 13:21 Benzocaine/Menthol (*Bkc) 18 Ea Lozenge PO PRN PRN Sore Throat Benzonatate 100 mg 11/05/23 13:21 Benzonatate 100 Mg Capsule PO TID PRN Cough Cyanocobalamin 1,000 mcg 11/06/23 09:00 Cyanocobalamin In
--- NOTE | 2023-11-06 11:56 | PC.NURSE ---
Patient taken down for MRCP
--- NOTE | 2023-11-06 12:45 | PC.NURSE ---
Patient returned to room from [facility]
--- NOTE | 2023-11-06 13:32 | PM.TDS ---
Transfer Discharge Sum: Prov Provider Date of admission: 11/05/23 11:16 Primary care physician: Yair Stokes, Admitting clinician: Reji Carty MD Consults: 11/05/23 Consult to Physician Routine Comment: spoke to [phone] Consulting Provider: Marck Shelton call box wirer/MD group to consult: GI Reason for consultation: gallstones, elevated LFTs Has provider been notified: Yes Attending physician on discharge: Jamal Carty Discharging clinician: Christian Hoyt Anticipated date of transfer: 11/06/23 Receiving physician/facility: Dr. Crandall at [facility] transfer and room assignment [id number] which is a step-down unit DS: Admitting Diagnosis Discharge Date 11/05 Admitting Diagnosis pancreatitis, COVID, diabetes, hypertension DS: Discharge Diagnosis Discharge Diagnosis (1) Acute necrotizing pancreatitis: Code(s): K85.91 - Acute pancreatitis with uninfected necrosis, unspecified Status: Acute (2) Diabetes: Qualifiers: Diabetes mellitus complication status: without complication Diabetes mellitus terminal gauger insulin use: without fpc use Diabetes mellitus type: type 2 Qualified Code(s): E11.9 - Type 2 diabetes mellitus without complications Code(s): E11.9 - Type 2 diabetes mellitus without complications Status: Acute (3) Gallbladder sludge: Code(s): K82.8 - Other specified diseases of gallbladder Status: Acute (4) Elevated liver enzymes: Code(s): R74.8 - Abnormal levels of other serum enzymes Status: Acute (5) Pancreatic pseudocyst: Code(s): K86.3 - Pseudocyst of pancreas Status: Acute (6) Hypertension: Qualifiers: Hypertension type: primary hypertension Qualified Code(s): I10 - Essential (primary) hypertension Code(s): I10 - Essential (primary) hypertension Status: Acute Plan Patient had an admitting diagnosis of COVID but patient reports he had his initial positive COVID test was 2 weeks ago and was completely asymptomatic, thus no longer an active diagnosis Transfer Discharge Sum: Med Medications Active and Home Medications: Home Medications atorvastatin 10 mg tablet 10 mg PO DAILY 11/05/23 [History Confirmed 11/05/23] cyanocobalamin (vitamin B-12) 1,000 mcg/mL injection solution 1,000 mcg subcut WEEKLY 11/05/23 [History Confirmed 11/05/23] glyburide 2.5 mg tablet 2.5 mg PO DAILY 11/05/23 [History Confirmed 11/05/23] insulin glargine 100 unit/mL (3 mL) subcutaneous pen (Lantus Solostar U-100 Insulin) 18 unit subcut HS 11/05/23 [History Confirmed 11/05/23] lisinopril 20 mg tablet 20 mg PO DAILY 11/05/23 [History Confirmed 11/05/23] pantoprazole 40 mg tablet,delayed release 40 mg PO DAILY 11/05/23 [History Confirmed 11/05/23] sitagliptin phosphate 100 mg tablet (Januvia) 100 mg PO DAILY 11/05/23 [History Confirmed 11/05/23] Active Medications Acetaminophen (Acetaminophen 500 Mg Tablet) 500 mg PO Q4H PRN PRN Reason: Mild Pain (1-3) or Fever Hydrocodone Bitart/Acetaminophen (Hydrocodone/Acetaminophen (*Crx) 5-325 Mg Tablet) 1 tab PO Q4H PRN PRN Reason: Pain Rated 4-6 Last Admin: 11/06/23 05:18 Dose: 1 tab Atorvastatin Calcium (Atorvastatin 10 Mg Tablet) 10 mg PO DAILY [facility] Last Admin: 11/06/23 09:32 Dose: 10 mg Benzocaine (Benzocaine/Menthol (*Bkc) 18 Ea Lozenge) 1 lozenge PO PRN PRN PRN Reason: Sore Throat Benzonatate (Benzonatate 100 Mg Capsule) 100 mg PO TID PRN PRN Reason: Cough Cyanocobalamin (Cyanocobalamin Inj 1,000 Mcg/Ml Vial) 1,000 mcg SUB-Q WEEKLY [facility] Last Admin: 11/06/23 12:46 Dose: Not Given Dextrose (Dextrose 50% 25 Gm/50 Ml Syringe) 12.5 gm IV PUSH PRN PRN; Protocol PRN Reason: Hypoglycemia Glucagon (Glucagon For Inj 1 Mg Vial) 1 mg IM PRN PRN; Protocol PRN Reason: Hypoglycemia Glucose (Glucose Oral Gel 15 Gm Of Glucse In 37.5 Gm Tube) 15 gm PO PRN PRN; Protocol PRN Reason: Hypoglycemia Glyburide (Glyb
[2023-11-06] MEDS: PIPERACILLIN/TAZ 4.5G/NS 100ML 4.5 GM/100 ML BAG IVPB (13:46)
[2023-11-06 14:00] VITALS: BP 149/94; PULSE 99; RESP 18; TEMP 36.8; O2SAT 98
[2023-11-06 14:12] LABS: Lactic Acid Reflex 1.3 mmol/L (0.7-2.0)
== END 2023-11-06 14:25 | disposition short-term general hospital (02) | DRG 282 ==
LOC: ANHED 08:39 → ANH3MEDSUR 10:53
PROVIDERS: Student in an Organized Health Care Education/Training Program; Admitting Provider Internal Medicine; Emergency Provider Preventive Medicine Aerospace Medicine; PCP Internal Medicine; Visit Provider Nurse Practitioner
DX: K85.91 Acute pancreatitis with uninfected necrosis, unspecified (principal); K82.8 Other specified diseases of gallbladder; K86.3 Pseudocyst of pancreas; E11.9 Type 2 diabetes mellitus without complications; I10 Essential (primary) hypertension; E78.5 Hyperlipidemia, unspecified; F17.210 Nicotine dependence, cigarettes, uncomplicated; Z86.16 Personal history of COVID-19
CPT/HCPCS: 36415; 71046; 74177; 74183; 76376; 80053; 80307; 81001; 82948; 83036; 83605; 83690; 85025; 85027; 87040; 96374; 96375; 99285; A9270; A9577; G0378; G0379; J1644; J1815; J2270; J2405; J2543; J7030; J7120; Q9967

== ENCOUNTER 2025-02-24 16:40 | Emergency (ER) | payer MEDICAID, SELFPAY ==
--- NOTE | ~2025-02-24 | CT_ITS ---
CLINICAL INDICATION: Epigastric and right upper quadrant pain COMPARISON: . TECHNIQUE: Multiple contiguous axial images of the abdomen and pelvis were performed following the ad ministration of with 100 mL Omnipaque-350 intravenous contrast The dose-length product (DLP) was 1591.40 mGy-cm. Automated exposure control and iterative reconstruction technique were employed. FINDINGS/OBSERVATIONS: Visualized lower thorax: The bilateral lung bases are clear. The heart is of normal size, without pericardial effusion. Small hiatal hernia is present. Liver: The liver demonstrates homogeneous enhancement and is not enlarged. Gallbladder and biliary system: The gallbladder is distended, containing layering stones and is otherwise unremarkable. Pancreas: The pancreas enhances homogeneously without ductal dilatation. Spleen: The spleen enhances homogeneously and is not enlarged. Kidneys: The bilateral kidneys enhance symmetrically without hydronephrosis or renal calculi. Adrenal glands: Unremarkable. Gastrointestinal tract: Mural thickening with surrounding inflammatory change is identified within the second and third porti on of the duodenum, for which duodenitis versus early pancreatitis is detected. Rectosigmoid diverticulosis without surrounding inflammatory change. Appendix: The air-filled appendix is of normal caliber (axial series, images 127 through 144) Vasculature: Unremarkable. Lymph nodes: No pathologically enlarged or morphologically suspicious lymph nodes within the retroperitoneum or at the root of the mesentery. Pelvic structures: The bladder is only minimally distended, and otherwise unremarkable. The prostate gland is not enlarged. Body wall and musculoskeletal: Small fat-containing umbilical hernia. No significant degenerative disease within the lower thoracic or lumbosacral spine. IMPRESSION: Findings within the second and third portion of the duodenum, for which duodenitis versus early pancr eatitis is suspected. Cholelithiasis. Reviewed, dictated and finalized at location A. IMPRESSION: Findings within the second and third portion of the duodenum, for which duodeni tis versus early pancreatitis is suspected. Cholelithiasis.
[2025-02-24 17:06] VITALS: BP 138/86; PULSE 85; RESP 15; TEMP 36.4; O2SAT 100
--- NOTE | 2025-02-24 20:06 | ECG_ITS ---
Test Date: 2025-02-24 20:59:24 Measurements Intervals [place] Rate: 80 P: 24 RI: 198 QRS: 36 QRSD: 87 T: 30 QT: 386 QTc: 446 Interpretive Statements SINUS RHYTHM CANNOT R/O SEPTAL INFARCT, AGE INDETERMINATE ABNORMAL ECG No previous ECG available for comparison Electronically Signed On 02-24-2025 21:30:51 CDT by Wale Jasso D.O.
[2025-02-24 20:20] VITALS: BP 147/105; PULSE 85; RESP 16; O2SAT 95
[2025-02-24 20:20] LABS: Basophils Percent Auto 0.6 % (0.2-1.2); Eosinophils Absolute Auto 0.3 K/mm3 (0-0.3); Eosinophils Percent Auto 4.5 % (0-4.4); Hematocrit 47.1 % (42.0-52.0); Hemoglobin 15.8 g/dL (14.0-18.0); Immature Granulocyte Absolute 0.02 K/mm3 (0.00-0.031); Immature Granulocyte Percent A 0.3 % (0-0.5); Lymphocytes Absolute Auto 1.92 K/mm3 (0.9-3.2); Lymphocytes Percent Auto 27.7 % (18.3-44.2); Mean Corpuscular HGB Conc 33.5 g/dl (32-36); Mean Corpuscular Hemoglobin 30.3 pg (26-34); Mean Corpuscular Volume 90.2 fl (80-100); Mean Platelet Volume 10.1 fl (7.4-10.4); Monocytes Absolute Auto 0.6 K/mm3 (0.1-0.6); Monocytes Percent Auto 8.1 % (2.6-8.5); Neutrophils Absolute Auto 4.1 K/mm3 (1.3-6.7); Neutrophils Percent Auto 58.8 % (45.5-73.1); Platelet Count Result 261 k/mm3 (150-375); Red Blood Count 5.22 M/mm3 (4.6-6.20); Red Cell Distribution Width 14.3 % (11.5-14.5); White Blood Count 6.9 K/mm3 (4.5-10.0)
[2025-02-24 20:31] LABS: Alanine Aminotransferase 30 U/L (6-50); Albumin Level 4.6 g/dL (3.5-5.1); Alkaline Phosphatase 109 U/L (38-126); Anion Gap 9 mmol/L (4-12); Aspartate Amino Transferase 33 U/L (17-59); Bilirubin,Total 0.6 mg/dL (0.2-1.3); Blood Urea Nitrogen 11 mg/dL (9-20); Calcium 9.6 mg/dL (8.4-10.2); Carbon Dioxide 24 mmol/L (22-30); Chloride 106 mmol/L (98-107); Estimated CRCL calculation 99 ml/min; Estimated Glomerular Filt Rate > 60; Glucose 156 mg/dL (65-110); Lipase 499 U/L (23-300); Potassium 3.7 mmol/L (3.4-5.0); Sodium 139 mmol/L (137-145); Total Protein 8.2 g/dL (6.3-8.2)
--- NOTE | 2025-02-24 20:31 | ED_ITS ---
HPI - Abdominal Pain General Chief Complaint: Abdominal Pain Stated Complaint: pancreatitis Time Seen by Provider: 02/24/25 20:03 History of Present Illness HPI narrative: 49-year-old male with a history of diabetes and pancreatitis presents emergency department with concerns for pancreatitis. Patient states he has been having epigastric abdominal pain for the past month that has worsened over the past couple of days. He reports associated nausea, no vomiting. He states this feels like his prior episodes of pancreatitis. He denies prior abdominal surgeries. Denies dysuria or hematuria. States he has followed with GI at [facility]. He reports occasional alcohol use. Related Data Home Medications ?Medication ?Instructions ?Recorded ?Confirmed ?Last Taken ?Type atorvastatin 10 mg tablet 10 mg PO DAILY 11/05/23 11/05/23 11/05/23 09:00 History cyanocobalamin (vitamin B-12) 1,000 mcg subcut WEEKLY 11/05/23 11/05/23 10/30/23 09:00 History 1,000 mcg/mL injection solution glyburide 2.5 mg tablet 2.5 mg PO DAILY 11/05/23 11/05/23 11/04/23 09:00 History insulin glargine 100 unit/mL (3 18 unit subcut HS 11/05/23 11/05/23 11/04/23 21:00 History mL) subcutaneous pen (Lantus Solostar U-100 Insulin) lisinopril 20 mg tablet 20 mg PO DAILY 11/05/23 11/05/23 11/04/23 09:00 History pantoprazole 40 mg tablet,delayed 40 mg PO DAILY 11/05/23 11/05/23 11/04/23 09:00 History release sitagliptin phosphate 100 mg 100 mg PO DAILY 11/05/23 11/05/23 11/04/23 09:00 History tablet (Januvia) Allergies Allergy/AdvReac Type Severity Reaction Status Date / Time shellfish derived Allergy Severe Anaphylactic Verified 02/24/25 17:07 Shock Review of Systems 2 Review of Systems: All systems reviewed & are unremarkable except as noted in HPI and below PMFSH Past Medical History Medical History Gallbladder sludge Elevated liver enzymes Pancreatic pseudocyst HLD (hyperlipidemia) Pancreatitis Hypertension Diabetes Surgical History Surgical History History of knee surgery L ACL and Meniscus Repair Social History Social History Smoking packs per day: 0.5 Smoking cigarettes per day: 10.0 Years smoked: 28 Smoking pack-years: 14.00 Smoking status: Current every day smoker Alcohol intake: current Drinks per week: 1 Substance use: never Do You Feel Safe in your Home?: Yes Lack of Transportation: No Lack of Food: Never True Current Housing: I Have Housing Concerned About Future Housing: No Difficulty Paying Gas/Electric Bills: No Difficulty Paying for Meds: No Currently Unemployed: YES Education: Associate Degree Difficulty w/ Childcare or Family Care: No Spiritual care concerns: No Exam 2 Narrative: GENERAL: Well-appearing, well-nourished, and in no acute distress. HEAD: Normocephalic, atraumatic. EYES: EOMI. ENT: Nares clear, no rhinorrhea or epistaxis. Mucous membranes moist. NECK: Supple. CHEST: Clear to auscultation. No respiratory distress. HEART: Regular rate and rhythm. No murmur heard. Normal peripheral pulses. ABDOMEN: Normoactive bowel sounds. Abdomen soft with tenderness in epigastrium. No rebound or rigidity. No CVA tenderness EXTREMITIES: Normal range of motion. No edema. SKIN: Warm, dry, no rash. NEURO: No focal deficits. Alert and oriented x3 Course Vital Signs Vital signs: Vital Signs Temperature 97.6 F 02/24/25 17:06 Pulse Rate 85 02/24/25 17:06 Respiratory Rate 15 02/24/25 17:06 Blood Pressure 138/86 02/24/25 17:06 Pulse Oximetry 100 02/24/25 17:06 Oxygen Delivery Room Air 02/24/25 17:06 Temperature 97.6 F 02/24/25 17:06 Pulse Rate 85 02/24/25 20:20 Respiratory Rate 16 02/24/25 20:20 Blood Pressure 147/105 H 02/24/25 20:20 Pulse Oximetry 95 02/24/25 20:20 Oxygen Delivery Room Air 02/24/25 17:06 MDM - Abdominal Pain MDM Narrative Medical decision making narrative: 49-year-old male with a history of pancreatitis presents to emergency department with concerns for pancreatitis. See HPI for further history. Triage vitals are stable. Patient is afebrile and nontoxic appearing resting comfortably in exam bed. Exam notable for tenderness to the epigastrium. His lab work shows no leukocytosis or anemia. Chemistries are unremarkable. Lipase is mildly elevated at 499, prior lipase in November of 2023 was 1230. UA with elevated specific gravity, otherwise no abnormalities. Lactic acid is within normal limits. EKG shows normal sinus rhythm with rate of 80 ppm, normal MT interval, normal QRS duration, normal QTC, no ischemic changes. IMPRESSION: Findings within the second and third portion of the duodenum, for which duodenitis versus early pancreatitis is suspected. Cholelithiasis Patient updated on results. On re-evaluation he reports improvement after IV fluids, morphine, Pepcid and Zofran. However he reports he is having some residual pain. I offered admission for hydration and pain control, however patient politely declined. States he would like to go home. He was given a dose of Toradol prior to leaving. Zofran, hydrocodone and Pepcid sent to pharmacy. Encouraged clear liquid diet for the next few days and close follow- up with his GI physician at [facility]. Advised to refrain from ETOH use. I discussed strict ED return precautions. He is agreeable with the plan verbalized understanding. Discharged in stable condition. Lab Data 02/24/25 20:14 02/24/25 20:14 Labs: Lab Results 02/24/25 02/24/25 02/24/25 Range/Units 20:14 21:09 21:16 WBC 6.9 (4.5-10.0) K/mm3 RBC 5.22 (4.6-6.20) M/mm3 Hgb 15.8 (14.0-18.0) g/dL Hct 47.1 (42.0-52.0) % MCV 90.2 (80-100) fl MCH 30.3 (26-34) pg MCHC 33.5 (32-36) g/dl RDW 14.3 (11.5-14.5) % Plt Count 261 (150-375) k/mm3 MPV 10.1 (7.4-10.4) fl Immature Gran % (Auto) 0.3 (0-0.5) % Neut % (Auto) 58.8 (45.5-73.1) % Lymph % (Auto) 27.7 (18.3-44.2) % [place] % (Auto) 8.1 (2.6-8.5) % Eos % (Auto) 4.5 H (0-4.4) % Baso % (Auto) 0.6 (0.2-1.2) % Lymph # (Auto) 1.92 (0.9-3.2) K/mm3 [place] # (Auto) 0.6 (0.1-0.6) K/mm3 Eos # (Auto) 0.3 (0-0.3) K/mm3 Baso # (Auto) 0.0 (0.0-0.1) K/mm3 Abs Immat Gran (auto) 0.02 (0.00-0.031) K/mm3 Absolute Neuts (auto) 4.1 (1.3-6.7) K/mm3 Absolute Nucleated RBC 0.000 (0.0-0.012) K/mm3 Nucleated RBC % 0.0 (0.0-0.2) % Sodium 139 (137-145) mmol/L Potassium 3.7 (3.4-5.0) mmol/L Chloride 106 (98-107) mmol/L Carbon Dioxide 24 (22-30) mmol/L Anion Gap 9 (4-12) mmol/L BUN 11 (9-20) mg/dL Creatinine 1.13 (0.7-1.3) mg/dL Estim Creat Clear Calc 99 ml/min Estimated GFR > 60 (59 - ) Glucose 156 H (65-110) mg/dL POC Capillary Glucose 156 H (65-105) mg/dl Lactic Acid 1.2 (0.7-2.0) mmol/L Calcium 9.6 (8.4-10.2) mg/dL Total Bilirubin 0.6 (0.2-1.3) mg/dL AST 33 (17-59) U/L ALT 30 (6-50) U/L Alkaline Phosphatase 109 (38-126) U/L Total Protein 8.2 (6.3-8.2) g/dL Albumin 4.6 (3.5-5.1) g/dL Lipase 499 H (23-300) U/L Urine Color Yellow (Yellow) Urine Appearance Clear (Clear) Urine pH 5.5 (5.0-9.0) Ur Specific [place] > 1.045 H (1.001-1.035) Urine Protein Negative (Negative) mg/dL Urine Glucose (UA) Negative (Negative) mg/dL Urine Ketones Negative (Negative) mg/dL Ur Blood (Man) Negative (Negative) Urine Nitrate Negative (Negative) Urine Bilirubin Negative (Negative) Urine Urobilinogen 1.0 (<2.0) mg/dL Leukocyte Esterase Rfl Negative (Negative) SABINO/UL Imaging Data Radiologist's impression: ITS Impressions Abdomen/Pelvis CT 02/24/25 20:58 IMPRESSION: Findings within the second and third portion of the duodenum, for which duodenitis versus early pancreatitis is suspected. Cholelithiasis. Discharge Plan Discharge Clinical Impression: Pancreatitis Qualifiers: Chronicity: acute Pancreatitis type: unspecified pancreatitis type Acute pancreatitis complication: unspecified Qualified Code(s): K85.90 - Acute pancreatitis without necrosis or infection, unspecified Cholelithiasis Qualifiers: Cholelithiasis location: gallbladder Cholecystitis presence: without cholecystitis Biliary obstruction: without biliary obstruction Qualified Code(s): K80.20 - Calculus of gallbladder without cholecystitis without obstruction Patient Disposition: Home Condition: Stable Instructions: Antibiotic Form, Pancreatitis (ED) Additional Instructions: You were evaluated in the emergency department with concerns for pancreatitis. Your pancreas enzyme is mildly elevated in the CT scan shows findings of early pancreatitis versus inflammation of your duodenum as discussed. You were also found to have stones in your gallbladder. Please drink a clear liquid diet for the next 24-48 hours until your pain improves and then slowly advance to a bland diet. Take hydrocodone as needed for pain, Zofran for nausea and Pepcid as prescribed. Follow-up closely with her GI specialist at [facility]. Return to the emergency department if you develop worsening pain, fever, you are unable to tolerate food or fluids, or other concerning symptoms. Patient Language: Spanish Prescriptions: New hydrocodone-acetaminophen 5-325 mg tablet 1 tablet PO Q8H PRN (Reason: pain) Qty: 14 0RF ondansetron 4 mg tablet,disintegrating 4 mg PO Q8H Qty: 14 0RF famotidine 20 mg tablet 20 mg PO DAILY Qty: 14 0RF No Action atorvastatin 10 mg tablet 10 mg PO DAILY glyburide 2.5 mg tablet 2.5 mg PO DAILY lisinopril 20 mg tablet 20 mg PO DAILY pantoprazole 40 mg tablet,delayed release (DR/EC) 40 mg PO DAILY cyanocobalamin (vitamin B-12) 1,000 mcg/mL solution 1,000 mcg subcut WEEKLY Rx Instructions: takes on Thursday (last dose 10/30) Januvia 100 mg tablet 100 mg PO DAILY insulin glargine [Lantus Solostar U-100 Insulin] 100 unit/mL (3 mL) insulin pen 18 unit SUBCUT HS Follow-up/Referrals: Kike,Yair Hawkins MD [Primary Care Provider] -
[2025-02-24] MEDS: FAMOTIDINE 20 MG/2 ML VIAL IV PUSH (20:37)
[2025-02-24] MEDS: SODIUM CHLORIDE 0.9% IV 1,000 ML 999 ML IV CONT (20:37)
[2025-02-24] MEDS: ONDANSETRON INJ 4 MG/2 ML VIAL IV PUSH (20:37)
[2025-02-24] MEDS: MORPHINE SULFATE (*CRX) 4 MG/ML INJ IV PUSH (20:38)
[2025-02-24 21:18] LABS: Glucose Point of Care 156 mg/dl (65-105)
[2025-02-24 21:23] LABS: Add Urine Microscopic? NO; Appearance Urine Clear (Clear); Bilirubin Urine Negative (Negative); Blood Urine Negative (Negative); Color Urine Yellow (Yellow); Glucose Urine UA Negative (Negative); Ketones Urine Negative (Negative); Leukocyte Esterase Ur Negative LEU/UL (Negative); Nitrate Urine Negative (Negative); Protein Urine Negative (Negative); Specific Grav Ur > 1.045 (1.001-1.035); pH Urine 5.5 (5.0-9.0)
[2025-02-24 21:27] LABS: Lactic Acid Reflex 1.2 mmol/L (0.7-2.0)
[2025-02-24] MEDS: KETOROLAC 30 MG/ML VIAL (*BKC) IV PUSH (22:35)
[2025-02-24 22:50] VITALS: BP 130/82; PULSE 76; RESP 16; TEMP 36.4; O2SAT 98
== END 2025-02-24 22:51 | disposition home or self-care (01) ==
PROVIDERS: Emergency Medicine; Emergency Provider Physician Assistant; PCP Internal Medicine
DX: K85.90 Acute pancreatitis without necrosis or infection, unspecified (principal); K80.20 Calculus of gallbladder without cholecystitis without obstruction; Z79.4 Long term (current) use of insulin; E11.9 Type 2 diabetes mellitus without complications; E78.5 Hyperlipidemia, unspecified; I10 Essential (primary) hypertension; F17.210 Nicotine dependence, cigarettes, uncomplicated
CPT/HCPCS: 36415; 74177; 80053; 81003; 82948; 83605; 83690; 85025; 93005; 96361; 96374; 96375; 99284; J1885; J2270; J2405; J7030; Q9967